=== PATIENT | female | born 1960 | race Caucasian/White ===

== ENCOUNTER 2024-02-05 08:39 | Outpatient (AMB) | payer MEDICARE, MEDICAID, SELFPAY ==
[2024-02-05 09:02] VITALS: BP 130/91; PULSE 108; RESP 18; TEMP 37.1; O2SAT 94; BMI 38.7
--- NOTE | 2024-02-05 09:02 | ORTHONT_ITS ---
Vital signs 02/05/24 09:02 Height 1.8 m Height Method Stated Weight 125.844 kg Weight Measurement Method Standing Scale BMI 38.7 BP 130/91 H Blood Pressure Source Automatic Cuff Blood Pressure Location Right Upper Arm Position Sitting Respiration 18 Pulse 108 H Pulse Source Monitor Temp 98.7 F Temp Source Temporal Artery Scan Pulse Oximetry (%) 94 L Oxygen Delivery Method Room Air Med/Allergies Allergies & Medications Allergies Penicillins Allergy (Verified 02/05/24 09:03) Medication Reconciliation Unobtainable 02/05/24 [History Confirmed 02/05/24] Subjective Visit Visit for: new patient and knee Immunization / Flu Flu Vaccine in the Last 12 Months: Yes Flu Vaccine Exclusion Criteria: Already Received History of Present Illness Chief complaint: LEFT KNEE PAIN Date of injury / onset of symptoms: 03/2003 Patient is a pleasant 63-year-old female with bilateral knee pain worse on the left. This been ongoing for over 5 years. She has tried significant conservative treatment including physical therapy, 5 steroid injections, hyaluronic acid injection, pain management, braces, cane, Voltaren, and ibuprofen. She was told that she needed a knee replacement. The pain started affect her quality life and happiness. She is using a cane Pain Pain level (0-10): 6 Pain duration: ON AND OFF Pain location: inside (medial) Pain quality: dull and aching Pain timing: night and increases with activity Associated signs & symptoms: weakness and stiffness Ambulatory data Ambulatory device: none Treatments Improvement with previous injections: No Improvement with PT: No Improvement with NSAIDS: no Review of Systems Review of Systems: All systems negative unless otherwise noted in HPI. Exam Exam Patient is in no acute distress and is cooperative with the examination today. Breathing is nonlabored. In no respiratory distress. Bilateral extremities were evaluated and demonstrates sensation intact to light touch. Palpable pedal pulses are present. No significant edema is present. Bilateral hips were examined. The patient has no pain with log roll of the hips. Internal rotation to 30 degrees and external rotation to 30 degrees is painless. Negative FADIR. The left knee was examined. The left knee is in [varus] alignment. Range of motion from [0-115] degrees. Knee is stable to varus and valgus as well as AP translation with <5mm. Patient has a [negative] McMurrays. There is [no] pain with patellofemoral compression and [no] crepitus noted. The knee is [tender] to palpation [medially]. The right knee was also examined. The right knee is in [varus] alignment. Range of motion from [0-120] degrees. Knee is stable to varus and valgus as well as AP translation with <5mm. Patient has a [negative] McMurrays. There is [no] pain with patellofemoral compression and [no] crepitus noted. The knee is [tender] to palpation [medially]. Assessment and Plan Problem List (1) Degenerative arthritis of knee, bilateral: Status: Acute Plan: Patient is a pleasant 63-year-old female with bilateral knee pain and bilateral knee arthritis. We discussed nonoperative and operative options. We discussed total knee replacement in great detail today. She is failed conservative treatment. She was diagnosed with POTS recently and is seeing an animal killer. We will do bilateral knee injections today. She would like to possibly get surgery in the future after she gets medical clearance Recommend knee cortisone injections as patient would like to proceed with conservative treatment at this time. The risks and benefits of the procedure were reviewed with the patient and patient gave verbal consent to continue with the procedure. Procedure: performed by Dr. García Using sterile technique the Bilateral knees were thoroughly prepped with alcohol, and approximately 1 cc of Kenalog 40 mg/mL and 4 cc of 1% lidocaine was injected into each knee without resistance into the medial tibial femoral joint space. The patient tolerated the procedure. Advanced Care Planning Discussion Advance care planning discussed with:: patient Office Procedures GNS Level of Care Nursing/Assessment Patient Status: Initial/New Patient Nursing Assessment/Reassesment: Medication Reconciliation, Update PMH in EMR and Vital Signs Coordination of Care: Complex Care and Chronic Disease 1-5, Education Complex Pt/Fam, Consent,records obtained, informed consent, 1 Ins Authorization, Results/Orders obtained and Staff clarify orders New Patient Charge New Patient Point Assignment: [id number] New Patient Point Charge: PLUMBING ASSEMBLER INSTALLER Level 3 (0357-1552) Surgical Proc/IM SQ injection Major Surgical Procedure: Yes (BILATERAL knee injections ) Medication Given Medication Given Medication Given: Yes Documented Dose Given: 8 Route: Infiitration Medication Given Medication Given Medication Given: Yes Documented Dose Given: 2 Route: Infiitration Office Meds Xylocaine 10 mg/mL (1 %) injection solution Performing Provider: Jorje García MD Performing Location: [facility] Administered by: Jorje García MD on 02/05/24 11:35 Dose Route Admin Location Dispensed Lot Number Expiration Date [facility] Wildlife Biology Technician 40 mL Infiltration 40 mL [id number] [facility] triamcinolone acetonide 40 mg/mL suspension for injection Performing Provider: Jorje García MD Performing Location: [facility] Administered by: Jorje García MD on 02/05/24 11:35 Dose Route Admin Location Dispensed Lot Number Expiration Date [facility] Wildlife Biology Technician 80 mg intra-articular 2 mL [id number] [employer] Past Medical History Past Medical History Have you ever been diagnosed with any of the following: Respiratory Problems Smoking: No Smoking Exposure: No
== END 2024-02-05 09:14 | disposition home or self-care (01) ==
PROVIDERS: PCP Physician Assistant; Referring Provider Physician Assistant; Supervising Provider Orthopaedic Surgery Adult Reconstructive Orthopaedic Surgery; Visit Provider Orthopaedic Surgery Adult Reconstructive Orthopaedic Surgery
DX: M17.0 Bilateral primary osteoarthritis of knee (principal); M25.562 Pain in left knee; M25.561 Pain in right knee
CPT/HCPCS: 20610; 99203; J3301; J3490; G0463

== ENCOUNTER 2024-05-01 14:45 | Outpatient (AMB) | payer MEDICARE, MEDICAID, SELFPAY ==
--- NOTE | 2024-05-01 14:41 | ORTHONT_ITS ---
Med/Allergies Allergies & Medications Allergies Penicillins Allergy (Verified 05/01/24 14:42) Medication Reconciliation Unobtainable 02/05/24 [History Confirmed 05/01/24] Subjective Visit Visit for: follow up visit and knee (LEFT) Immunization / Flu Flu Vaccine in the Last 12 Months: No Flu Vaccine Exclusion Criteria: No Exclusion Criteria History of Present Illness Chief complaint: LEFT KNEE PAIN Date of injury / onset of symptoms: 03/2003 Patient is a pleasant 63-year-old female with bilateral knee pain worse on the left. This been ongoing for over 5 years. She has tried significant conservative treatment including physical therapy, 5 steroid injections, hyaluronic acid injection, pain management, braces, cane, Voltaren, and ibuprofen. She was told that she needed a knee replacement. The pain started affect her quality life and happiness. She is using a cane. She would like new injections as they have been working. Pain Pain level (0-10): 8 Pain duration: CONSTANT Pain location: anterior Pain quality: dull and aching Pain timing: increases with activity Associated signs & symptoms: numbness and weakness Ambulatory data Ambulatory device: none Treatments Improvement with previous injections: No Improvement with PT: No Improvement with NSAIDS: no Review of Systems Review of Systems: All systems negative unless otherwise noted in HPI. Assessment and Plan Problem List (1) Degenerative arthritis of knee, bilateral: Status: Acute Plan: Patient is a pleasant 63-year-old female with bilateral knee pain and bilateral knee arthritis. We discussed nonoperative and operative options. We discussed total knee replacement in great detail today. She is failed conservative treatment. She was diagnosed with POTS recently and is seeing an supervisor cytology. She would like repeat knee injections today as they have worked tremendously Advanced Care Planning Discussion Advance care planning discussed with:: patient Office Procedures GNS Level of Care Nursing/Assessment Patient Status: Established Patient Nursing Assessment/Reassesment: Medication Reconciliation, Update PMH in EMR and Vital Signs Coordination of Care: Complex Care and Chronic Disease 1-5, Education Complex Pt/Fam, Consent,records obtained, informed consent, Results/Orders obtained and Staff clarify orders Established Patient Charge Established Patient Point Assignment: 95 Telehealth Telemed Phone/Video with patient at home & Dr,PA,COSMETICIAN APPRENTICE: Yes
== END 2024-05-01 14:47 | disposition home or self-care (01) ==
LOC: HODSRG 14:45
PROVIDERS: PCP Physician Assistant; Referring Provider Physician Assistant; Supervising Provider Orthopaedic Surgery Adult Reconstructive Orthopaedic Surgery; Visit Provider Orthopaedic Surgery Adult Reconstructive Orthopaedic Surgery
DX: M17.0 Bilateral primary osteoarthritis of knee (principal); M25.562 Pain in left knee; M25.561 Pain in right knee; G90.A Postural orthostatic tachycardia syndrome [POTS]
CPT/HCPCS: 99212; G0463

== ENCOUNTER 2024-05-16 09:18 | Outpatient (AMB) | payer MEDICARE, MEDICAID, SELFPAY ==
[2024-05-16 09:32] VITALS: BP 131/84; PULSE 82; RESP 18; TEMP 36.1; O2SAT 94; BMI 39.0
--- NOTE | 2024-05-16 09:32 | ORTHONT_ITS ---
Vital signs 05/16/24 09:32 Height 1.8 m Height Method Stated Weight 126.581 kg Weight Measurement Method Standing Scale BMI 39.0 BP 131/84 H Blood Pressure Source Automatic Cuff Blood Pressure Location Right Upper Arm Position Sitting Respiration 18 Pulse 82 Pulse Source Monitor Temp 96.9 F Temp Source Temporal Artery Scan Pulse Oximetry (%) 94 L Oxygen Delivery Method Room Air Med/Allergies Allergies & Medications Allergies Penicillins Allergy (Verified 05/16/24 09:32) Medication Reconciliation Unobtainable 02/05/24 [History Confirmed 05/16/24] Exam Exam Patient is in no acute distress and is cooperative with the examination today. Breathing is nonlabored. In no respiratory distress. Bilateral extremities were evaluated and demonstrates sensation intact to light touch. Palpable pedal pulses are present. No significant edema is present. Bilateral hips were examined. The patient has no pain with log roll of the hips. Internal rotation to 30 degrees and external rotation to 30 degrees is painless. Negative FADIR. The left knee was examined. The left knee is in [varus] alignment. Range of motion from [0-115] degrees. Knee is stable to varus and valgus as well as AP translation with <5mm. Patient has a [negative] McMurrays. There is [no] pain with patellofemoral compression and [no] crepitus noted. The knee is [tender] to palpation [medially]. The right knee was also examined. The right knee is in [varus] alignment. Range of motion from [0-120] degrees. Knee is stable to varus and valgus as well as AP translation with <5mm. Patient has a [negative] McMurrays. There is [no] pain with patellofemoral compression and [no] crepitus noted. The knee is [tender] to palpation [medially]. X-rays from [place] [facility] demonstrate bilateral knee arthritis of significant severity Assessment and Plan Problem List (1) Degenerative arthritis of knee, bilateral: Status: Acute Plan: Patient is a pleasant 63-year-old female with bilateral knee pain and bilateral knee arthritis. We discussed nonoperative and operative options. We discussed total knee replacement in great detail today. She is failed conservative treatment. She was diagnosed with POTS recently and is seeing an industrial maintenance manager. We will do bilateral knee injections today. She would like to possibly get surgery in the future after she gets medical clearance Recommend knee cortisone injections as patient would like to proceed with conservative treatment at this time. The risks and benefits of the procedure were reviewed with the patient and patient gave verbal consent to continue with the procedure. Procedure: performed by Dr. García Using sterile technique the Bilateral knees were thoroughly prepped with alcohol, and approximately 1 cc of Kenalog 40 mg/mL and 4 cc of 1% lidocaine was injected into each knee without resistance into the medial tibial femoral joint space. The patient tolerated the procedure. Advanced Care Planning Discussion Advance care planning discussed with:: patient Office Procedures GNS Level of Care Nursing/Assessment Patient Status: Established Patient Nursing Assessment/Reassesment: Medication Reconciliation, Update PMH in EMR and Vital Signs Coordination of Care: Complex Care and Chronic Disease 1-5, Education Complex Pt/Fam, Consent,records obtained, informed consent, Results/Orders obtained and Staff clarify orders Established Patient Charge Established Patient Point Assignment: 95 Established Patient Point Charge: EP Level 3 (80-115) Surgical Proc/IM SQ injection Major Surgical Procedure: Yes (BILATERAL KNEE INJECTION) Medication Given Medication Given Medication Given: Yes Documented Dose Given: 8 Route: Infiitration Medication Given Medication Given Medication Given: Yes Documented Dose Given: 2 Route: Infiitration Office Meds Xylocaine 10 mg/mL (1 %) injection solution Performing Provider: Jorje García MD Performing Location: [facility] Administered by: Jorje García MD on 05/16/24 10:04 Dose Route Admin Location Dispensed Lot Number Expiration Date [facility] Customs Opener Verifier Packer 40 mL Infiltration 40 mL [id number] 08/11/27 02337-503-15 [facility] triamcinolone acetonide 40 mg/mL suspension for injection Performing Provider: Jorje García MD Performing Location: [facility] Administered by: Jorje García MD on 05/16/24 10:04 Dose Route Admin Location Dispensed Lot Number Expiration Date [facility] Customs Opener Verifier Packer 80 mg intra-articular 2 mL [id number] 10/10/25 7379-9308-87 [facility] [place] Intake Visit Data Collection New Patient or Established: Established Patient (seen at [facility] within 3 years) Reason for Visit:: BILATERAL KNEE INJECTIONS Seen by Clinical Staff ONLY (RN/MA): No Verbal consent obtained for Telemed visit?: No Information Technology Analyst Required: No PCP or OBGYN visit in last 3 months: Yes Hx Now: No Do You Feel Safe at Home: Yes Authorities Contacted: N/A Questionairres Past Medical History Past Medical History Have you ever been diagnosed with any of the following: Respiratory Problems Smoking: No Smoking Exposure: No Subjective Visit Visit for: follow up visit, knee and injections Immunization / Flu Flu Vaccine in the Last 12 Months: No Flu Vaccine Exclusion Criteria: No Exclusion Criteria History of Present Illness Chief complaint: bilateral knee pain Lucia is a 64-year-old female with bilateral knee pain and bilateral knee arthritis. The left knee hurts worse than the right. The last injections have worked for 3 months. She would like repeat injections today Pain Pain level (0-10): 6 Pain duration: WITH MOVEMENT Pain location: anterior Pain quality: sharp Pain timing: increases with activity and stairs Associated signs & symptoms: none Ambulatory data Ambulatory device: none Treatments Number of previous injections: 2 Improvement with previous injections: Yes Improvement with PT: No Improvement with NSAIDS: no Review of Systems Review of Systems: All systems negative unless otherwise noted in HPI.
== END 2024-05-16 09:39 | disposition home or self-care (01) ==
PROVIDERS: PCP Physician Assistant; Referring Provider Physician Assistant; Supervising Provider Orthopaedic Surgery Adult Reconstructive Orthopaedic Surgery; Visit Provider Orthopaedic Surgery Adult Reconstructive Orthopaedic Surgery
DX: M25.561 Pain in right knee (principal); M25.562 Pain in left knee; M17.0 Bilateral primary osteoarthritis of knee
CPT/HCPCS: 20610; 99213; J3301; J3490; G0463

== ENCOUNTER 2024-08-15 08:22 | Outpatient (AMB) | payer MEDICARE, MEDICAID, SELFPAY ==
[2024-08-15 08:34] VITALS: BP 144/81; PULSE 92; RESP 17; TEMP 36.1; O2SAT 93; BMI 38.1
--- NOTE | 2024-08-15 08:34 | PD.ORTHCLVIS ---
Vital signs 08/15/24 08:34 Height 1.8 m Height Method Stated Weight 123.576 kg Weight Measurement Method Standing Scale BMI 38.1 BP 144/81 H Blood Pressure Source Automatic Cuff Blood Pressure Location Left Upper Arm Position Sitting Respiration 17 Pulse 92 Pulse Source Monitor Temp 96.9 F Temp Source Temporal Artery Scan Pulse Oximetry (%) 93 L Oxygen Delivery Method Room Air Med/Allergies Allergies & Medications Allergies Penicillins Allergy (Verified 08/15/24 08:36) Medication Reconciliation Unobtainable 02/05/24 [History Confirmed 08/15/24] Exam Exam Patient is in no acute distress and is cooperative with the examination today. Breathing is nonlabored. In no respiratory distress. Bilateral extremities were evaluated and demonstrates sensation intact to light touch. Palpable pedal pulses are present. No significant edema is present. Bilateral hips were examined. The patient has no pain with log roll of the hips. Internal rotation to 30 degrees and external rotation to 30 degrees is painless. Negative FADIR. The left knee was examined. The left knee is in [varus] alignment. Range of motion from [0-115] degrees. Knee is stable to varus and valgus as well as AP translation with <5mm. Patient has a [negative] McMurrays. There is [no] pain with patellofemoral compression and [no] crepitus noted. The knee is [tender] to palpation [medially]. The right knee was also examined. The right knee is in [varus] alignment. Range of motion from [0-120] degrees. Knee is stable to varus and valgus as well as AP translation with <5mm. Patient has a [negative] McMurrays. There is [no] pain with patellofemoral compression and [no] crepitus noted. The knee is [tender] to palpation [medially]. X-rays from [place] [facility] demonstrate bilateral knee arthritis of significant severity Assessment and Plan Problem List (1) Degenerative arthritis of knee, bilateral: Status: Acute Plan: Patient is a pleasant 63-year-old female with bilateral knee pain and bilateral knee arthritis. We discussed nonoperative and operative options. We discussed total knee replacement in great detail today. She is failed conservative treatment. She was diagnosed with POTS recently and is seeing an bistro server. We will do bilateral knee injections today. She would like to possibly get surgery in the future after she gets medical clearance Recommend knee cortisone injections as patient would like to proceed with conservative treatment at this time. The risks and benefits of the procedure were reviewed with the patient and patient gave verbal consent to continue with the procedure. Procedure: performed by Dr. García Using sterile technique the Bilateral knees were thoroughly prepped with alcohol, and approximately 1 cc of Kenalog 40 mg/mL and 4 cc of 1% lidocaine was injected into each knee without resistance into the medial tibial femoral joint space. The patient tolerated the procedure. Advanced Care Planning Discussion Advance care planning discussed with:: patient Office Procedures GNS Level of Care Nursing/Assessment Patient Status: Established Patient Nursing Assessment/Reassesment: Medication Reconciliation, Update PMH in EMR and Vital Signs Coordination of Care: Complex Care and Chronic Disease 1-5, Education Complex Pt/Fam, Consent,records obtained, informed consent, Results/Orders obtained and Staff clarify orders Established Patient Charge Established Patient Point Assignment: 95 Established Patient Point Charge: EP Level 3 (80-115) Surgical Proc/IM SQ injection Major Surgical Procedure: Yes (BILATERAL KNEE INJECTION) Medication Given Medication Given Medication Given: Yes Documented Dose Given: 8 Route: Infiitration Medication Given Medication Given Medication Given: Yes Documented Dose Given: 2 Route: Infiitration Office Meds Xylocaine 10 mg/mL (1 %) injection solution Performing Provider: Jorje García MD Performing Location: [facility] Administered by: Jorje García MD on 08/15/24 09:10 Dose Route Admin Location Dispensed Lot Number Expiration Date [facility] Pastry Sous Chef 40 mL Infiltration 40 mL [id number] [facility] triamcinolone acetonide 40 mg/mL suspension for injection Performing Provider: Jorje García MD Performing Location: [facility] Administered by: Jorje García MD on 08/15/24 09:10 Dose Route Admin Location Dispensed Lot Number Expiration Date [facility] Pastry Sous Chef 80 mg intra-articular KNEE 2 mL [id number] 09/09/25 67213-043-85 [facility] [place] Intake Visit Data Collection New Patient or Established: Established Patient (seen at [facility] within 3 years) Reason for Visit:: 3 MNTH FU BILAT KNEE INJECTION Seen by Clinical Staff ONLY (RN/MA): No Nut Feeder Required: No PCP or OBGYN visit in last 3 months: Yes Hx Now: No Do You Feel Safe at Home: Yes Authorities Contacted: N/A Questionairres Past Medical History Past Medical History Have you ever been diagnosed with any of the following: Respiratory Problems Smoking: No Smoking Exposure: No Tobacco Use: No Subjective Visit Visit for: follow up visit and knee (BILATERAL KNEE ) Immunization / Flu Flu Vaccine in the Last 12 Months: No Flu Vaccine Exclusion Criteria: Refused by Patient History of Present Illness Chief complaint: bilateral knee pain Lucia is a 64-year-old female with bilateral knee pain and bilateral knee arthritis. The left knee hurts worse than the right. The last injections have worked for 3 months. She would like repeat injections today Personal History Red flag PMH: none Pain Pain level (0-10): 6 Pain duration: 1 MONTH Pain location: anterior Pain quality: shocking and electric Pain timing: increases with activity Associated signs & symptoms: weakness Ambulatory data Ambulatory device: none Walking distance (minutes): 1 Treatments Number of previous injections: 2 Improvement with previous injections: Yes Number of Physical Therapy sessions: 0 Improvement with PT: No Improvement with NSAIDS: n/a Review of Systems Review of Systems: All systems negative unless otherwise noted in HPI.
== END 2024-08-15 08:52 | disposition home or self-care (01) ==
LOC: HODSRG 08:22
PROVIDERS: PCP Physician Assistant; Referring Provider Physician Assistant; Supervising Provider Orthopaedic Surgery Adult Reconstructive Orthopaedic Surgery; Visit Provider Orthopaedic Surgery Adult Reconstructive Orthopaedic Surgery
DX: M17.0 Bilateral primary osteoarthritis of knee (principal); M25.562 Pain in left knee; M25.561 Pain in right knee; G90.A Postural orthostatic tachycardia syndrome [POTS]
CPT/HCPCS: 20610; 99213; J3301; J3490; G0463

== ENCOUNTER 2024-11-13 08:28 | Outpatient (AMB) | payer MEDICARE, MEDICAID, SELFPAY ==
[2024-11-13 09:02] VITALS: BP 126/77; PULSE 97; RESP 18; TEMP 35.9; O2SAT 93; BMI 37.7
--- NOTE | 2024-11-13 09:02 | ORTHONT_ITS ---
Vital signs 11/13/24 09:02 Height 1.8 m Height Method Stated Weight 122.158 kg Weight Measurement Method Standing Scale BMI 37.7 BP 126/77 Blood Pressure Source Automatic Cuff Blood Pressure Location Left Upper Arm Position Sitting Respiration 18 Pulse 97 Pulse Source Monitor Temp 96.7 F L Temp Source Temporal Artery Scan Pulse Oximetry (%) 93 L Oxygen Delivery Method Room Air Med/Allergies Allergies & Medications Allergies Penicillins Allergy (Verified 11/13/24 09:03) Medication Reconciliation Unobtainable 02/05/24 [History Confirmed 11/13/24] Exam Exam Patient is in no acute distress and is cooperative with the examination today. Breathing is nonlabored. In no respiratory distress. Bilateral extremities were evaluated and demonstrates sensation intact to light touch. Palpable pedal pulses are present. No significant edema is present. Bilateral hips were examined. The patient has no pain with log roll of the hips. Internal rotation to 30 degrees and external rotation to 30 degrees is painless. Negative FADIR. The left knee was examined. The left knee is in [varus] alignment. Range of motion from [0-115] degrees. Knee is stable to varus and valgus as well as AP translation with <5mm. Patient has a [negative] McMurrays. There is [no] pain with patellofemoral compression and [no] crepitus noted. The knee is [tender] to palpation [medially]. The right knee was also examined. The right knee is in [varus] alignment. Range of motion from [0-120] degrees. Knee is stable to varus and valgus as well as AP translation with <5mm. Patient has a [negative] McMurrays. There is [no] pain with patellofemoral compression and [no] crepitus noted. The knee is [tender] to palpation [medially]. X-rays from [facility] demonstrate bilateral knee arthritis of significant severity Assessment and Plan Problem List (1) Degenerative arthritis of knee, bilateral: Status: Acute Plan: Patient is a pleasant 63-year-old female with bilateral knee pain and bilateral knee arthritis. We discussed nonoperative and operative options. We discussed total knee replacement in great detail today. She is failed conservative treatment. She was diagnosed with POTS recently and is seeing an supervisor erection shop. We will do bilateral knee injections today. She would like to possibly get surgery in the future after she gets medical clearance Recommend knee cortisone injections as patient would like to proceed with conservative treatment at this time. The risks and benefits of the procedure were reviewed with the patient and patient gave verbal consent to continue with the procedure. Procedure: performed by Dr. García Using sterile technique the Bilateral knees were thoroughly prepped with alcohol, and approximately 1 cc of Kenalog 40 mg/mL and 4 cc of 1% lidocaine was injected into each knee without resistance into the medial tibial femoral joint space. The patient tolerated the procedure. Advanced Care Planning Discussion Advance care planning discussed with:: patient Office Procedures GNS Level of Care Nursing/Assessment Patient Status: Established Patient Nursing Assessment/Reassesment: Medication Reconciliation, Update PMH in EMR and Vital Signs Coordination of Care: Complex Care and Chronic Disease 1-5, Education Complex Pt/Fam, Consent,records obtained, informed consent, Results/Orders obtained and Staff clarify orders Established Patient Charge Established Patient Point Assignment: 95 Established Patient Point Charge: EP Level 3 (80-115) Surgical Proc/IM SQ injection Major Surgical Procedure: Yes (BILATERAL KNEE INJECTION) Medication Given Medication Given Medication Given: Yes Documented Dose Given: 1 Route: Infiitration Medication Given Medication Given Medication Given: Yes Documented Dose Given: 1 Route: Infiitration Medication Given Medication Given Medication Given: Yes Documented Dose Given: 4 Route: Infiitration Medication Given Medication Given Medication Given: Yes Documented Dose Given: 4 Route: Infiitration Office Meds methylprednisolone acetate 80 mg/mL suspension for injection Performing Provider: Jorje García MD Performing Location: [facility] Administered by: Jorje García MD on 11/13/24 12:18 Dose Route Admin Location Dispensed Lot Number Expiration Date Pack age [facility] Automatic Operator 80 mg intra-articular 1 mL [id number] 08/08/26 [address]-3 7 [id number] [employer] methylprednisolone acetate 80 mg/mL suspension for injection Performing Provider: Jorje García MD Performing Location: [facility] Administered by: Jorje García MD on 11/13/24 12:18 Dose Route Admin Location Dispensed Lot Number Expiration Date Pack age [facility] Automatic Operator 80 mg intra-articular 1 mL [id number] 08/08/26 [address]-9 7 [id number] [employer] ropivacaine (PF) 2 mg/mL (0.2 %) injection solution Performing Provider: Jorje García MD Performing Location: [facility] Administered by: Jorje García MD on 11/13/24 12:18 Dose Route Admin Location Dispensed Lot Number Expiration Date Pack age NDC NDC Automatic Operator 20 mL Infiltration 20 mL [id number] 02/08/26 16333-684-76 [id number] [facility] ropivacaine (PF) 2 mg/mL (0.2 %) injection solution Performing Provider: Jorje García MD Performing Location: [facility] Administered by: Jorje García MD on 11/13/24 12:18 Dose Route Admin Location Dispensed Lot Number Expiration Date Pack age NDC NDC Automatic Operator 20 mL Infiltration 20 mL [id number] 02/08/26 83849-096-78 [id number] [facility] Intake Visit Data Collection New Patient or Established: Established Patient (seen at [facility] within 3 years) Reason for Visit:: 3 MNTH FU BILAT KNEE INJECTION Seen by Clinical Staff ONLY (RN/MA): No [employer] Required: No PCP or OBGYN visit in last 3 months: Yes Hx Now: No Do You Feel Safe at Home: Yes Authorities Contacted: N/A Questionairres Past Medical History Past Medical History Have you ever been diagnosed with any of the following: Respiratory Problems Smoking: No Smoking Exposure: No Tobacco Use: No Subjective Visit Visit for: follow up visit and knee (BILATERAL KNEE ) Immunization / Flu Flu Vaccine in the Last 12 Months: No Flu Vaccine Exclusion Criteria: Refused by Patient History of Present Illness Chief complaint: bilateral knee pain Lucia is a 64-year-old female with bilateral knee pain and bilateral knee arthritis. The left knee hurts worse than the right. The last injections have worked for 3 months. She would like repeat injections today Personal History Red flag PMH: none Pain Pain level (0-10): 6 Pain duration: 1 MONTH Pain location: anterior Pain quality: shocking and electric Pain timing: increases with activity Associated signs & symptoms: weakness Ambulatory data Ambulatory device: none Walking distance (minutes): 1 Treatments Number of previous injections: 2 Improvement with previous injections: Yes Number of Physical Therapy sessions: 0 Improvement with PT: No Improvement with NSAIDS: n/a Review of Systems Review of Systems: All systems negative unless otherwise noted in HPI.
== END 2024-11-13 09:04 | disposition home or self-care (01) ==
LOC: HODSRG 08:28
PROVIDERS: PCP Physician Assistant; Referring Provider Physician Assistant; Supervising Provider Orthopaedic Surgery Adult Reconstructive Orthopaedic Surgery; Visit Provider Orthopaedic Surgery Adult Reconstructive Orthopaedic Surgery
DX: M17.0 Bilateral primary osteoarthritis of knee (principal); M25.562 Pain in left knee; M25.561 Pain in right knee
CPT/HCPCS: 20610; 99213; J1010; J2795; G0463

== ENCOUNTER 2025-02-12 08:26 | Outpatient (AMB) | payer MEDICARE, MEDICAID, SELFPAY ==
--- NOTE | 2025-02-12 08:34 | PD.ORTHCLVIS ---
Vital signs 02/12/25 08:44 Height 1.8 m Height Method Measured Weight 121.563 kg Weight Measurement Method Standing Scale BMI 37.5 BP 122/80 Blood Pressure Source Automatic Cuff Blood Pressure Location Left Upper Arm Position Sitting Respiration 18 Pulse 84 Pulse Source Monitor Temp 96.5 F L Temp Source Temporal Artery Scan Pulse Oximetry (%) 92 L Oxygen Delivery Method Room Air Med/Allergies Allergies & Medications Allergies Penicillins Allergy (Verified 02/12/25 08:45) Medication Reconciliation Unobtainable 02/05/24 [History Confirmed 02/12/25] Exam Exam Patient is in no acute distress and is cooperative with the examination today. Breathing is nonlabored. In no respiratory distress. Bilateral extremities were evaluated and demonstrates sensation intact to light touch. Palpable pedal pulses are present. No significant edema is present. Bilateral hips were examined. The patient has no pain with log roll of the hips. Internal rotation to 30 degrees and external rotation to 30 degrees is painless. Negative FADIR. The left knee was examined. The left knee is in [varus] alignment. Range of motion from [0-115] degrees. Knee is stable to varus and valgus as well as AP translation with <5mm. Patient has a [negative] McMurrays. There is [no] pain with patellofemoral compression and [no] crepitus noted. The knee is [tender] to palpation [medially]. The right knee was also examined. The right knee is in [varus] alignment. Range of motion from [0-120] degrees. Knee is stable to varus and valgus as well as AP translation with <5mm. Patient has a [negative] McMurrays. There is [no] pain with patellofemoral compression and [no] crepitus noted. The knee is [tender] to palpation [medially]. X-rays from [facility] demonstrate bilateral knee arthritis of significant severity Assessment and Plan Problem List (1) Degenerative arthritis of knee, bilateral: Status: Acute Plan: Patient is a pleasant 63-year-old female with bilateral knee pain and bilateral knee arthritis. We discussed nonoperative and operative options. We discussed total knee replacement in great detail today. She is failed conservative treatment. She was diagnosed with POTS recently and is seeing an databases software consultant. We will do bilateral knee injections today. She would like to possibly get surgery in the future after she gets medical clearance Recommend knee cortisone injection as patient would like to proceed with conservative treatment at this time. The risks and benefits of the procedure were reviewed with the patient and patient gave verbal consent to continue with the procedure. Procedure: performed by Dr. García Using sterile technique the Right knee was thoroughly prepped with alcohol, and approximately 1 cc of Depo-Medrol 80mg/mL and 4 cc of 0.2% ropivacaine was injected without resistance into the medial tibial femoral joint space. The patient tolerated the procedure. Recommend knee cortisone injection as patient would like to proceed with conservative treatment at this time. The risks and benefits of the procedure were reviewed with the patient and patient gave verbal consent to continue with the procedure. Procedure: performed by Dr. García Using sterile technique the leftknee was thoroughly prepped with alcohol, and approximately 1 cc of Depo-Medrol 80mg/mL and 4 cc of 0.2% ropivacaine was injected without resistance into the medial tibial femoral joint space. The patient tolerated the procedure. Advanced Care Planning Discussion Advance care planning discussed with:: patient Office Procedures GNS Level of Care Nursing/Assessment Patient Status: Established Patient Nursing Assessment/Reassesment: Medication Reconciliation, Update PMH in EMR and Vital Signs Coordination of Care: Complex Care and Chronic Disease 1-5, Education Complex Pt/Fam, Consent,records obtained, informed consent, Results/Orders obtained and Staff clarify orders Established Patient Charge Established Patient Point Assignment: 95 Established Patient Point Charge: EP Level 3 (80-115) Surgical Proc/IM SQ injection Minor Surgical Procedure: Yes (KNEE INJECTION) Medication Given Medication Given Medication Given: Yes Documented Dose Given: 2 Route: Infiitration Medication Given Medication Given Medication Given: Yes Documented Dose Given: 8 Route: Infiitration Office Meds methylprednisolone acetate 80 mg/mL suspension for injection Performing Provider: Jorje García MD Performing Location: [facility] Administered by: Jorje García MD on 02/12/25 08:45 Dose Route Admin Location Dispensed Lot Number Expiration Date Package [facility] Flat Grinder Operator 160 mg intra-articular KNEE 2 mL [id number] 10/09/26 [address]-5 [id number] [employer] ropivacaine (PF) 2 mg/mL (0.2 %) injection solution Performing Provider: Jorje García MD Performing Location: [facility] Administered by: Jorje García MD on 02/12/25 08:45 Dose Route Admin Location Dispensed Lot Number Expiration Date Package NDC NDC Flat Grinder Operator 40 mL Infiltration KNEE 40 mL [id number] 04/11/27 31397-250-32 [id number] [facility] Intake Visit Data Collection New Patient or Established: Established Patient (seen at [facility] within 3 years) Reason for Visit:: 3 MNTH FU BILAT KNEE INJECTION Seen by Clinical Staff ONLY (RN/MA): No Sales Representative [employer] Util[employer] Required: No PCP or OBGYN visit in last 3 months: Yes Hx Now: No Do You Feel Safe at Home: Yes Authorities Contacted: N/A Questionairres Past Medical History Past Medical History Have you ever been diagnosed with any of the following: Respiratory Problems Smoking: No Smoking Exposure: No Tobacco Use: No Subjective Visit Visit for: follow up visit and knee (BILATERAL KNEE ) Immunization / Flu Flu Vaccine in the Last 12 Months: No Flu Vaccine Exclusion Criteria: Refused by Patient History of Present Illness Chief complaint: bilateral knee pain Lucia is a 64-year-old female with bilateral knee pain and bilateral knee arthritis. The left knee hurts worse than the right. The last injections have worked for 3 months. She would like repeat injections today Personal History Red flag PMH: none Pain Pain level (0-10): 6 Pain duration: 1 MONTH Pain location: anterior Pain quality: shocking and electric Pain timing: increases with activity Associated signs & symptoms: weakness Ambulatory data Ambulatory device: none Walking distance (minutes): 1 Treatments Number of previous injections: 2 Improvement with previous injections: Yes Number of Physical Therapy sessions: 0 Improvement with PT: No Improvement with NSAIDS: n/a Review of Systems Review of Systems: All systems negative unless otherwise noted in HPI.
[2025-02-12 08:44] VITALS: BP 122/80; PULSE 84; RESP 18; TEMP 35.8; O2SAT 92; BMI 37.5
== END 2025-02-12 08:54 | disposition home or self-care (01) ==
LOC: HODSRG 08:26
PROVIDERS: PCP Physician Assistant; Referring Provider Physician Assistant; Supervising Provider Orthopaedic Surgery Adult Reconstructive Orthopaedic Surgery; Visit Provider Orthopaedic Surgery Adult Reconstructive Orthopaedic Surgery
DX: M17.0 Bilateral primary osteoarthritis of knee (principal); M25.562 Pain in left knee; M25.561 Pain in right knee
CPT/HCPCS: 20610; 99213; J1010; J2795; G0463